=== PATIENT | female | born 1960 | race Hispanic/Latino ===

== ENCOUNTER 2016-10-11 11:55 | Inpatient (IN) | payer BC ==
[2016-10-11 13:03] LABS: Basophils % (Auto) 0.3 % (0.0-1.8); Eosinophils % (Auto) 0.3 % (0.0-4.3); Hemoglobin 12.8 gm/dl (10.1-14.3); Mean Corpuscular HGB Conc 33 % (30-34); Mean Corpuscular Hemoglobin 28 pg (28-32); Mean Corpuscular Volume 86 fl (79-97); Platelet Count 314 K/mm3 (140-440); Red Blood Count 4.52 M/mm3 (3.65-5.03); Red Cell Distribution Width 14.6 % (13.2-15.2); White Blood Count 17.3 K/mm3 (4.5-11.0)
[2016-10-11 13:26] LABS: Anion Gap 20 mmol/L; Blood Urea Nitrogen 12 mg/dL (7-17); Calcium 9.3 mg/dL (8.4-10.2); Carbon Dioxide 24 mmol/L (22-30); Glucose 130 mg/dL (65-100); Potassium 4.7 mmol/L (3.6-5.0); Sodium 134 mmol/L (137-145)
[2016-10-11] MEDS ORDERED: TYLENOL PO ONE (14:21)
[2016-10-11] MEDS ORDERED: TORADOL IV ONE (14:21)
--- NOTE | 2016-10-11 14:23 | Emergency Department Report ---
ED Chest Pain HPI - General Chief Complaint: Chest Pain Stated Complaint: CHEST PAIN Time Seen by Provider: 10/11/16 14:10 Source: patient, RN notes reviewed Mode of arrival: Ambulatory Limitations: No Limitations - History of Present Illness Initial Comments: This is a 56-year-old female. She is previously unknown to me. Her primary care doctor is Dr. Garcia. She is a past medical history of rheumatoid arthritis, takes sulfasalazine. Also has a past medical history of hypertension, distant history of renal insufficiency, bowel obstruction, partial colectomy. Patient sent to the ER by cardiology, Dr. Tory Chew, for evaluation of chest pain. The chest pain is central, does not radiate to the back, arms and neck. Associated with low-grade fever, worsens with deep inspiration, leaning forward , leaning backward. No recent cough or viral syndrome. There is no leg pain. There is no leg swelling. No recent trips greater than 4 hours. MD Complaint: chest pain -: Gradual Onset: during rest Pain Location: substernal, left chest, right chest Pain Radiation: none Severity: mild Severity scale (0 -10): 10 Quality: aching Consistency: intermittent Improves With: rest Worsens With: exertion, inspiration, movement Other Symptoms: fever Aspirin use within the Past 7 Days: (0) No - Related Data Home Medications Medication Instructions Recorded Confirmed Last Taken Ibuprofen [Motrin] 800 mg PO Q8HR PRN 10/11/16 10/11/16 10/11/16 Levothyroxine [Synthroid] 25 mcg PO QAM 10/11/16 10/11/16 10/11/16 Metoprolol Xl [Metoprolol 50 mg PO QDAY 10/11/16 10/11/16 10/11/16 SUCCINATE ER TAB] Paroxetine HCl [PARoxetine] 20 mg PO DAILY 10/11/16 10/11/16 10/11/16 Spironolactone [Aldactone] 50 mg PO QDAY 10/11/16 10/11/16 10/11/16 sulfaSALAzine [Azulfidine] 500 mg PO BID 10/11/16 10/11/16 10/11/16 Allergies Allergy/AdvReac Type Severity Reaction Status Date / Time No Known Allergies Allergy Unverified 10/11/16 12:18 SANDER score - Sander Score Age > 65: (0) No Aspirin use within the Past 7 Days: (1) Yes 3 or more CAD Risk Factors: (0) No 2 or more Angina events in past 24 hrs: (0) No Known CAD with more than 50% Stenosis: (0) No Elevated Cardiac Markers: (0) No ST Deviation Greater than 0.5mm: (0) No SANDER Score: 1 ED Review of Systems ROS: Stated complaint: CHEST PAIN Other details as noted in HPI Constitutional: fever Eyes: denies: vision change ENT: denies: epistaxis Respiratory: denies: cough Cardiovascular: chest pain Gastrointestinal: denies: abdominal pain, nausea, diarrhea Genitourinary: as per HPI Musculoskeletal: denies: back pain Skin: denies: lesions Neurological: denies: weakness Psychiatric: denies: depression ED Past Medical Hx - Past Medical History Previous Medical History?: Yes Hx Hypertension: Yes Hx Renal Disease: Yes (Hx) Hx of Cancer: Yes (ovarian) Hx Arthritis: Yes (Rheumatoid) Additional medical history: Bowel obstruction, Hx. of HD. - Surgical History Past Surgical History?: Yes Additional Surgical History: Colon resection, Abd. surgeries, Hx. of trach - Medications Home Medications: Home Medications Medication Instructions Recorded Confirmed Last Taken Type Ibuprofen [Motrin] 800 mg PO Q8HR PRN 10/11/16 10/11/16 10/11/16 History Levothyroxine [Synthroid] 25 mcg PO QAM 10/11/16 10/11/16 10/11/16 History Metoprolol Xl [Metoprolol 50 mg PO QDAY 10/11/16 10/11/16 10/11/16 History SUCCINATE ER TAB] Paroxetine HCl [PARoxetine] 20 mg PO DAILY 10/11/16 10/11/16 10/11/16 History Spironolactone [Aldactone] 50 mg PO QDAY 10/11/16 10/11/16 10/11/16 History sulfaSALAzine [Azulfidine] 500 mg PO BID 10/11/16 10/11/16 10/11/16 History ED Physical Exam - General Limitations: No Limitations General appearance: alert, in no apparent distress - Head Head exam: Present: atraumatic, normocephalic - Eye Eye exam: Present: normal appearance, PERRL, EOMI. Absent: nystagmus - ENT ENT exam: Present: normal exam, normal orophraynx, mucous membranes moist, normal external ear exam - Neck Neck exam: Present: normal inspection, full ROM. Absent: tenderness, meningismus - Respiratory Respiratory exam: Present: normal lung sounds bilaterally, other. Absent: respiratory distress, wheezes, rales, rhonchi, stridor, decreased breath sounds - Cardiovascular Cardiovascular Exam: Present: regular rate, normal rhythm, normal heart sounds. Absent: bradycardia, tachycardia, irregular rhythm, systolic murmur, diastolic murmur, rubs, gallop - GI/Abdominal GI/Abdominal exam: Present: soft, normal bowel sounds. Absent: distended, tenderness, guarding, rebound, rigid, pulsatile mass - Extremities Exam Extremities exam: Present: normal inspection, full ROM, normal capillary refill. Absent: tenderness, pedal edema, joint swelling, calf tenderness - Back Exam Back exam: Present: normal inspection, full ROM. Absent: tenderness, CVA tenderness (R), CVA tenderness (L), muscle spasm, paraspinal tenderness, vertebral tenderness - Neurological Exam Neurological exam: Present: alert, oriented X3, normal gait, other (Extraocular movements intact. Tongue midline. No facial droop. Facial sensation intact to light touch in the V1, V2, V3 distribution bilaterally. 5 and 5 strength in 4 extremities.. Sensation is intact to light touch in 4 extremities.). Absent : motor sensory deficit - Psychiatric Psychiatric exam: Present: normal affect, normal mood - Skin Skin exam: Present: warm, dry, intact, normal color, other (skin exam unremarkable. Bilateral breast exam unremarkable. Escorted by nurse Lyn Lewis). Absent: rash ED Course Vital Signs 10/11/16 10/11/16 10/11/16 12:10 14:04 16:00 Temperature 99.4 F 101.5 F H Pulse Rate 80 77 Respiratory 20 16 Rate Blood Pressure 121/71 Blood Pressure 121/71 118/73 [Right] O2 Sat by Pulse 97 97 Oximetry 10/11/16 16:10 Temperature Pulse Rate Respiratory 18 Rate Blood Pressure Blood Pressure [Right] O2 Sat by Pulse Oximetry - Reevaluation(s) Reevaluation #1: 10/11/16 15:00 Differential diagnosis: Acute coronary syndrome, pneumonia, pericarditis, myocarditis, acute coronary syndrome Assessment and plan: 56-year-old female on immune modulating therapy ( sulfasalazine), with fever, chest pain, most likely has pericarditis. My bedside ultrasound shows a small to moderate pericardial effusion. Blood cultures drawn. She will be given acetaminophen, pain medication, colchicine, Toradol. Given clinical exam findings and history, I doubt acute coronary syndrome. Case is discussed with cardiology, Faviola Guillen, who recommends admission. Cardiology will follow. Case is discussed with Hospital physician, Dr. Manzano, who accepts the patient to his service. 10/11/16 15:05 ED Medical Decision Making - Lab Data Result diagrams: 10/11/16 12:55 10/11/16 12:55 Vital Signs 10/11/16 10/11/16 12:10 14:04 Temperature 99.4 F 101.5 F H Pulse Rate 80 Respiratory 20 Rate Blood Pressure 121/71 Blood Pressure 121/71 [Right] O2 Sat by Pulse 97 Oximetry Laboratory Results - last 72 hr 10/11/16 10/11/16 12:55 12:55 WBC 17.3 H RBC 4.52 Hgb 12.8 Hct 39.0 MCV 86 MCH 28 MCHC 33 RDW 14.6 Plt Count 314 Lymph % (Auto) 7.9 L [place] % (Auto) 5.2 Eos % (Auto) 0.3 Baso % (Auto) 0.3 Lymph # 1.4 [place] # 0.9 H Eos # 0.1 Baso # 0.1 Seg Neutrophils % 86.3 H Seg Neutrophils # 14.9 H Sodium 134 L Potassium 4.7 Chloride 95.0 L Carbon Dioxide 24 Anion Gap 20 BUN 12 Creatinine 1.1 Estimated GFR 51 BUN/Creatinine Ratio 10.90 Glucose 130 H Calcium 9.3 Troponin T < 0.010 - EKG Data -: EKG Interpreted by Me EKG shows normal: sinus rhythm, axis, intervals, QRS complexes, ST-T waves Rate: normal - EKG Data When compared to previous EKG there are: no significant change Interpretation: unchanged when compared t 10/11/16 15:04 Normal sinus, 78 bpm, normal intervals, normal axis, not morphologically consistent with STEMI, essentially unchanged from prior EKG. - Radiology Data Radiology results: image reviewed interpreted by me: X-ray of the chest negative for acute disease Critical care attestation.: If time is entered above; I have spent that time in minutes in the direct care of this critically ill patient, excluding procedure time. ED Disposition Clinical Impression: Chest pain, Acute febrile illness Disposition: OP ADMITTED IP TO THIS HOSP Is pt being admited?: Yes Does the pt Need Aspirin: Yes Condition: Stable
--- NOTE | 2016-10-11 14:29 | Admit Criteria Form ---
Admission Criteria Documentation: FEBRILE ILLNESS, WITHOUT FOCAL INFECTION Clinical Indications for Admission to Inpatient Care (Place 'X' for any and all applicable criteria): Admission is indicated for ANY ONE of the following (1)(2)(3): [ ] I. Bacteremia [ X]II. Suspected or identified specific infection requiring hospitalization (eg, meningitis, endocarditis) [ ]III. Hemodynamic instability [ ]IV. Altered mental status [ ]V. Failure or unavailability of outpatient antimicrobial treatment [ ]. Hypoxemia [ ]VII. Seizures [ ]VIII. High-risk febrile neutropenia [ ]IX. Need for parenteral antibiotic in patient who is likely to abuse vascular access device (eg, injection drug user) [A](7) [ ]X. Temperature greater than 104.9 degrees F (40.5 degrees C) (oral) [X ]XI. Inpatient admission required rather than observation care because of ANY ONE of the following: [ ]a) Specific infection identified that is too severe for outpatient treatment or observation care trial [ ]b) Metabolic disorder (eg, hypoglycemia, hyperglycemia, metabolic acidosis) that is severe or persistent [ ]c) Temperature greater than 103.1 degrees F (39.5 degrees C) ( oral) that is not responsive to observation care treatment [ ]d) IV fluid to replace significant ongoing (eg, for over 24 hours) losses (> 3 L/m2 per day) [ ]e) Supplemental oxygen or respiratory treatments for over 24 hours that is performable only in acute inpatient setting [ ]f) Parenteral nutrition regimen need that must be implemented on inpatient basis [ ]g) Strict or protective (eg, laminar flow) isolation [X ]h) Other condition, treatment or monitoring requiring inpatient admission Extended stay beyond goal length of stay may be needed for(1)(3) [ ]a) Sepsis or septic shock(22) [ ]b) Positive blood cultures [ ]c) Insufficient oral intake [ ]d) High-risk febrile neutropenia(29)(30) [ ]e) Continued fever and clinical instability [ ]f) Clinically active comorbid illness (e.g,heart failure, renal failure , diabetes) The original [facility] [employer] content created by [facility] has been revised. The portions of the content which have been revised are identified through the use of italic text or in bold, and Elisa Sanchez has neither reviewed nor approved the modified material. All other unmodified content is copyright [facility]. Please see references footnoted in the original [facility] edition 2016 Admission Criteria Met: Yes
[2016-10-11] MEDS ORDERED: ROCEPHIN/NS 1 GM/50 ML 1 GM/50 ML BAG IV ONE (14:51)
[2016-10-11] MEDS ORDERED: BABY ASPIRIN PO ONE (15:06)
[2016-10-11 15:16] LABS: INR 1.21 (0.87-1.13)
--- NOTE | 2016-10-11 15:27 | Consultation ---
History of Present Illness Consult date: 10/11/16 Requesting physician: THOMAS DIAZ Medications and Allergies Allergies Allergy/AdvReac Type Severity Reaction Status Date / Time No Known Allergies Allergy Unverified 10/11/16 12:18 Home Medications Medication Instructions Recorded Confirmed Last Taken Type Ibuprofen [Motrin] 800 mg PO Q8HR PRN 10/11/16 10/11/16 10/11/16 History Levothyroxine [Synthroid] 25 mcg PO QAM 10/11/16 10/11/16 10/11/16 History Metoprolol Xl [Metoprolol 50 mg PO QDAY 10/11/16 10/11/16 10/11/16 History SUCCINATE ER TAB] Paroxetine HCl [PARoxetine] 20 mg PO DAILY 10/11/16 10/11/16 10/11/16 History Spironolactone [Aldactone] 50 mg PO QDAY 10/11/16 10/11/16 10/11/16 History sulfaSALAzine [Azulfidine] 500 mg PO BID 10/11/16 10/11/16 10/11/16 History Active Meds: Active Medications Colchicine (Colcrys) 0.6 mg PO ONCE.ED ONE Stop: 10/11/16 16:01 Physical Examination Vital Signs Temp Pulse Resp BP Pulse Ox 99.4 F 80 20 121/71 97 10/11/16 12:10 10/11/16 12:10 10/11/16 12:10 10/11/16 12:10 10/11/16 12:10 Results 10/11/16 12:55 10/11/16 12:55 Coagulation 10/11/16 Range/Units 14:52 PT 15.2 H (12.2-14.9) Sec. INR 1.21 H (0.87-1.13) CBC 10/11/16 Range/Units 12:55 WBC 17.3 H (4.5-11.0) K/mm3 RBC 4.52 (3.65-5.03) M/mm3 Hgb 12.8 (10.1-14.3) gm/dl Hct 39.0 (30.3-42.9) % Plt Count 314 (140-440) K/mm3 Lymph # 1.4 (1.2-5.4) K/mm3 [place] # 0.9 H (0.0-0.8) K/mm3 Eos # 0.1 (0.0-0.4) K/mm3 Baso # 0.1 (0.0-0.1) K/mm3 Comprehensive Metabolic Panel 10/11/16 Range/Units 12:55 Sodium 134 L (137-145) mmol/L Potassium 4.7 (3.6-5.0) mmol/L Chloride 95.0 L (98-107) mmol/L Carbon Dioxide 24 (22-30) mmol/L BUN 12 (7-17) mg/dL Creatinine 1.1 (0.7-1.2) mg/dL Glucose 130 H (65-100) mg/dL Calcium 9.3 (8.4-10.2) mg/dL
[2016-10-11] MEDS ORDERED: COLCRYS PO ONE (16:00)
--- NOTE | 2016-10-11 16:19 | Progress Note ---
Assessment and Plan Chest pain-->likely pericarditis first troponin negative, will trend obtain echocardiogram initiate ibuprofen 800mg Q8H Hypertension stable Rheumatoid arthritis The patient has been seen in conjunction with Dr. Charlton who agrees with the assessment and plan of care. Subjective Date of service: 10/11/16 Principal diagnosis: chest pain Interval history: The patient is a 56 year old female with a history of rheumatoid arthritis, hypertension who presented to Dr. Diallo's office this morning with complaints of substernal chest pain ongoing since yesterday. Given her persistent pain, she was referred to the ER for further evaluation. She states the pain is constant and worse with coughing, deep inspiration, leaning forward and lying backward. She denies any shortness of breath, palpitations, nausea, vomiting or diaphoresis. Denies any recent viral syndrome. First troponin negative. WBC 17.3. Temperature 101.5. Objective Last Vital Signs Temp 101.5 F H 10/11/16 14:04 Pulse 80 10/11/16 12:10 Resp 18 10/11/16 16:10 BP 121/71 10/11/16 12:10 Pulse Ox 97 10/11/16 12:10 - Physical Examination General: No Apparent Distress HEENT: Positive: PERRL, Normocephaly, Mucus Membranes Moist Neck: Positive: neck supple, trachea midline Cardiac: Positive: Reg Rate and Rhythm, Other (muffled heart sounds) Lungs: Positive: clear to auscultation Neuro: Positive: Grossly Intact Abdomen: Positive: Soft, Active Bowel Sounds. Negative: Tender Skin: Positive: Clear. Negative: Rash Extremities: Present: normal. Absent: edema - Imaging and Cardiology Echo: pending Holter: image reviewed - Telemetry EKG Rhythm: Sinus Rhythm
--- NOTE | 2016-10-11 16:25 | XRay Report ---
Chest 2 views. History: Chest pain and fever. Findings: The heart and lungs reveal no acute or significant abnormalities.
[2016-10-11] MEDS ORDERED: MOTRIN PO SCH (17:00)
[2016-10-11] MEDS ORDERED: MOTRIN PO PRN (23:10)
--- NOTE | 2016-10-11 23:12 | Event Note ---
Date: 10/11/16 See H/p in reports Pericarditis HTN RA Hypothyroidism Fever
[2016-10-12] MEDS: SYNTHROID PO SCH (05:59)
--- NOTE | 2016-10-12 10:14 | History and Physical Report ---
CHIEF COMPLAINT: Left-sided chest pain for 1 day. HISTORY OF PRESENT ILLNESS: A 56-year-old female with a history of rheumatoid arthritis, hypertension, went to the jockey agent's office, Dr. Diallo for substernal chest pain, ongoing since yesterday. The patient has persistent left-sided chest pain, more on inspiration and leaning forward and coughing, also lying backward. Pain is about 8 on a scale of 1-10. Dull to sharp, mostly dull, located to the left precordial region. No radiation. Also, fever of 101.5. The patient was referred to the ER for further evaluation by the jockey agent's office, Dr. Kay from [facility]. Some shortness of breath present. No palpitations. PAST MEDICAL HISTORY: Significant for hypothyroidism, hypertension, depression, ovarian cancer, rheumatoid arthritis, history of bowel obstruction. PAST SURGICAL HISTORY: Significant for colon resection, history of trach, abdominal surgeries. CURRENT MEDICATIONS: Ibuprofen 800 mg p.o. q.8h., levothyroxine 25 mcg p.o. daily, metoprolol 50 mg p.o. daily, paroxetine 20 mg p.o. daily, spironolactone 50 mg p.o. daily, Azulfidine 500 mg twice a day. FAMILY HISTORY: Significant for hypertension. SOCIAL HISTORY: Does not smoke. No alcohol, no recreational drugs. REVIEW OF SYSTEMS: CONSTITUTIONAL: No weight loss, no weight gain. Has fever present. HEENT: No sore throat. No postnasal drip. CARDIOVASCULAR: As mentioned in history of present illness. Left-sided chest pain more with breathing and coughing and leaning forward. No radiation. GASTROINTESTINAL: No nausea, no vomiting, no diarrhea. GENITOURINARY: No dysuria, no flank pain. EXTREMITIES: No joint pains, no muscle pains. CENTRAL NERVOUS SYSTEM: No syncope, no seizures. HEMATOLOGY OR LYMPHATIC: No bruising. No lymphadenopathy. PSYCHIATRIC: No depression. A 14-point review of systems done, otherwise negative. PHYSICAL EXAMINATION: GENERAL: Middle-aged female lying in bed, in slight pain. VITAL SIGNS: Temperature is 99.4 and 101.5, pulse is 80, respirations are 20, blood pressure is 121/71. HEENT: Unremarkable. Pupils equal and reactive. NECK: Supple, no lymphadenopathy, no thyromegaly. LUNGS: Clear to auscultation and percussion. Good air entry. CARDIOVASCULAR: S1, S2 heard. No gallop, no murmur, no rub. Apical impulse in left fifth intercostal space and midclavicular line. ABDOMEN: Soft and benign. No hepatosplenomegaly. No guarding, no rigidity. Hernial orifices are normal. EXTREMITIES: Good pedal pulses. No pedal edema. CENTRAL NERVOUS SYSTEM: Alert and oriented x 4, nonfocal exam. SKIN: Normal. LABORATORY DATA: Significant for white count of 17,300, potassium of 4.7, BUN and creatinine of 12 and 1.1. EKG shows normal sinus rhythm, normal intervals, normal QRS complexes and ST-T waves, 78 per minute. X-ray of the chest was negative for acute disease. The patient had an ultrasound in the ER by the ER physician and the ER physician gives a presumptive diagnosis of pericardial effusion. ASSESSMENT AND PLAN: 1. Pericarditis, high possibility present. The patient has fever and also chest pain on leaning forward. We will get echocardiogram. Also, Cardiology, ____ [facility] consulted. 2. Hypothyroidism. Continue levothyroxine 25 mcg daily. 3. Hypertension. Continue metoprolol 50 mg daily. 4. Rheumatoid arthritis . Continue sulfasalazine 500 mg b.i.d. 5. Depression. Continue paroxetine 20 mg daily. 6. Deep venous thrombosis prophylaxis, Lovenox 40 mg subcutaneous daily. In summary, the patient has a fever, pericarditis. The patient started on broad-spectrum antibiotics. JOB# [id number] DENAM/NTS
[2016-10-12] MEDS: ALDACTONE PO SCH (10:58)
[2016-10-12] MEDS: TOPROL XL PO SCH (10:58)
[2016-10-12] MEDS: PAXIL PO SCH (10:58)
[2016-10-12] MEDS: AZULFIDINE PO SCH ×2 (10:58→22:51)
[2016-10-12] MEDS ORDERED: TORADOL IV PRN (11:28)
--- NOTE | 2016-10-12 12:09 | Progress Note ---
Assessment and Plan Chest pain-->likely pericarditis troponin negative x 2 continue NSAIDS initiate colchicine await echo findings Hypertension stable Rheumatoid arthritis The patient has been seen in conjunction with Dr. Charlton who agrees with the assessment and plan of care. Subjective Date of service: 10/12/16 Principal diagnosis: chest pain Interval history: The patient is resting in bed. She c/o 10/10 CP across her entire chest, worse with deep inspiration. Sinus rhythm on the monitor. Objective Last Vital Signs Temp 97.8 F 10/12/16 08:03 Pulse 59 L 10/12/16 08:03 Resp 18 10/12/16 08:03 BP 107/59 10/12/16 08:03 Pulse Ox 97 10/12/16 08:03 - Physical Examination General: No Apparent Distress HEENT: Positive: PERRL, Normocephaly, Mucus Membranes Moist Neck: Positive: neck supple, trachea midline Cardiac: Positive: Reg Rate and Rhythm, Other (muffled heart sounds) Lungs: Positive: clear to auscultation Neuro: Positive: Grossly Intact Abdomen: Positive: Soft, Active Bowel Sounds. Negative: Tender Skin: Positive: Clear. Negative: Rash Extremities: Present: normal. Absent: edema - Imaging and Cardiology Echo: pending Holter: image reviewed - Telemetry EKG Rhythm: Sinus Rhythm
[2016-10-12] MEDS: COLCRYS PO SCH ×2 (12:40→22:51)
[2016-10-12] MEDS ORDERED: DECADRON IV ONE (12:40)
[2016-10-12] MEDS ORDERED: ROCEPHIN 2,000 MG in NACL 0.9% 50 ML IV SCH (13:00)
[2016-10-12] MEDS ORDERED: ROCEPHIN/NS 2 GM/100 ML 2 GM/100 ML BAG IV SCH (13:00)
--- NOTE | 2016-10-12 14:18 | Progress Note ---
Assessment and Plan Assessment and plan: Patient is 48-year-old woman history of hypertension, rheumatoid arthritis, hypothyroidism, 2002 PE off a/c, depression and ovarian cancer who presents with chest pain. She is suspected to have pericarditis by cardiology. 1. Acute pericarditis 2. Rheumatoid arthritis 3. Hypertension, chronic stable 4. Leukocytosis and febrile, SIRS, ?early sepsis on iv Rocephin, blood ctx done. 5. Elevated INR, reason unknown full code disposition: continue inpatient care History Interval history: Patient seen and examined. Follow up on chest pains which has still present and severe. Overnight uneventful. No n/v or severe headaches. Imaging, old records , testing, labs, nursing notes reviewed. Hospitalist Physical - Physical exam Narrative exam: GEN: WDWN, NAD, AWAKE, ALERT, ORIENTATED x 3 CVS: RRR, NORMAL S1S2 LUNGS/CHEST: CTA B, NORMAL CHEST EXPANSION B, GOOD AIR ENTRY B ABD: SOFT NTND, GBS, NO REBOUND OR GUARDING EXT/SKIN: NO SIGNIFICANT EDEMA OR RASH MSK: FROM X 4 EXTREMITIES NEURO: CN 2-12 GROSSLY INTACT, NO new FOCAL DEFICITS PSY: CALM - Constitutional Vitals: Temp Pulse Resp BP Pulse Ox 97.8 F 59 L 18 107/59 97 10/12/16 08:03 10/12/16 08:03 10/12/16 08:03 10/12/16 08:03 10/12/16 08:03 Results - Labs CBC & Chem 7: 10/11/16 12:55 10/11/16 12:55 Labs: Laboratory Last Values WBC 17.3 K/mm3 (4.5-11.0) H 10/11/16 12:55 RBC 4.52 M/mm3 (3.65-5.03) 10/11/16 12:55 Hgb 12.8 gm/dl (10.1-14.3) 10/11/16 12:55 Hct 39.0 % (30.3-42.9) 10/11/16 12:55 MCV 86 fl (79-97) 10/11/16 12:55 MCH 28 pg (28-32) 10/11/16 12:55 MCHC 33 % (30-34) 10/11/16 12:55 RDW 14.6 % (13.2-15.2) 10/11/16 12:55 Plt Count 314 K/mm3 (140-440) 10/11/16 12:55 Lymph % (Auto) 7.9 % (13.4-35.0) L 10/11/16 12:55 [place] % (Auto) 5.2 % (0.0-7.3) 10/11/16 12:55 Eos % (Auto) 0.3 % (0.0-4.3) 10/11/16 12:55 Baso % (Auto) 0.3 % (0.0-1.8) 10/11/16 12:55 Lymph # 1.4 K/mm3 (1.2-5.4) 10/11/16 12:55 [place] # 0.9 K/mm3 (0.0-0.8) H 10/11/16 12:55 Eos # 0.1 K/mm3 (0.0-0.4) 10/11/16 12:55 Baso # 0.1 K/mm3 (0.0-0.1) 10/11/16 12:55 Seg Neutrophils % 86.3 % (40.0-70.0) H 10/11/16 12:55 Seg Neutrophils # 14.9 K/mm3 (1.8-7.7) H 10/11/16 12:55 PT 15.2 Sec. (12.2-14.9) H 10/11/16 14:52 INR 1.21 (0.87-1.13) H 10/11/16 14:52 Sodium 134 mmol/L (137-145) L 10/11/16 12:55 Potassium 4.7 mmol/L (3.6-5.0) 10/11/16 12:55 Chloride 95.0 mmol/L (98-107) L 10/11/16 12:55 Carbon Dioxide 24 mmol/L (22-30) 10/11/16 12:55 Anion Gap 20 mmol/L 10/11/16 12:55 BUN 12 mg/dL (7-17) 10/11/16 12:55 Creatinine 1.1 mg/dL (0.7-1.2) 10/11/16 12:55 Estimated GFR 51 ml/min 10/11/16 12:55 BUN/Creatinine Ratio 10.90 % 10/11/16 12:55 Glucose 130 mg/dL (65-100) H 10/11/16 12:55 Lactic Acid 0.8 mmol/L (0.7-2.0) 10/11/16 14:52 Calcium 9.3 mg/dL (8.4-10.2) 10/11/16 12:55 Total Creatine Kinase 17 units/L (30-135) L 10/11/16 14:52 Troponin T < 0.010 ng/mL (0.00-0.029) 10/11/16 18:18 NT-Pro-B Natriuret Pep 730.2 pg/mL (0-900) 10/11/16 14:52
[2016-10-12] MEDS ORDERED: NACL ONE (16:28)
--- NOTE | 2016-10-12 17:27 | Cat Scan Report ---
FINAL REPORT PROCEDURE: CT ANGIO CHEST TECHNIQUE: Computerized tomographic angiography of the chest was performed after the IV injection of iodinated nonionic contrast including image processing. The image data was postprocessed using 2-dimensional multiplanar reformatted (MPR) and 3-dimensional (MIP and/or volume rendered) techniques. HISTORY: Chest pain. COMPARISON: No prior studies are available for comparison. FINDINGS: Heart and pericardium: Small pericardial effusion measuring up to 5 millimeters. Subtle stranding of the fat in the pericardial region. Mild coronary artery disease. Mild cardiomegaly. Thoracic aorta: Normal. Pulmonary vasculature: Normal. Lymph nodes: Mildly enlarged lymph nodes, increased in number and size. Prevascular lymph node measures 13 by 7 millimeters. Largest right paratracheal lymph node measures 16 by 17 millimeters.. Small pre cardiac lymph nodes. Lungs: Mild bibasilar airspace disease. Pleural space: Small right pleural effusion. Musculoskeletal structures: Small multilevel osteophytes. Multilevel disc space narrowing. Upper abdominal structures: Splenic granulomas.. Anterior abdominal wall diastases with loop of transverse colon in defect. IVC filter, tip below the level of the renal veins. IMPRESSION: No CT evidence of pulmonary embolism. Small pericardial effusion. Subtle stranding of the fat in the pericardial region, consider correlation clinically if there is concern for pericarditis. Coronary artery disease. Mild cardiomegaly. Bibasilar airspace disease. Small right pleural effusion. Consider atelectasis, cannot exclude pneumonia. Consider attention on followup radiographs. Moderate adenopathy, consider could be reactive to infectious/inflammatory process. This can also be re-evaluated on followup examination. Evidence of prior granulomatous disease. Anterior abdominal wall diastases with loop of transverse colon in defect.
[2016-10-13] MEDS: SYNTHROID PO SCH (05:57)
[2016-10-13] MEDS: TOPROL XL PO SCH (09:44)
[2016-10-13] MEDS: PAXIL PO SCH (09:44)
[2016-10-13] MEDS: COLCRYS PO SCH (09:44)
[2016-10-13] MEDS: ALDACTONE PO SCH (09:44)
[2016-10-13] MEDS: AZULFIDINE PO SCH (09:44)
--- NOTE | 2016-10-13 11:11 | Progress Note ---
Assessment and Plan Chest pain-->likely pericarditis troponin negative x 2 chest CTA negative for PE Echo 10/2016: EF 50-55%, no pericardial effusion stress test as an outpatient continue NSAIDS Hypertension stable Rheumatoid arthritis Stable cardiac status. Patient may be discharged from a cardiac standpoint on ibuprofen 800mg Q8H x 7 days and medrol dosepak. Follow up appointment with Dr. Diallo in the [place] office on 10/31/16 at 11 :30 am. The patient has been seen in conjunction with Dr. Charlton who agrees with the assessment and plan of care. Subjective Date of service: 10/13/16 Principal diagnosis: chest pain Interval history: The patient is resting in bed. She feels much better today. Chest pain 09/22 currently. Sinus rhythm on the monitor. Objective Last Vital Signs Temp 98.1 F 10/13/16 07:40 Pulse 67 10/13/16 08:00 Resp 20 10/13/16 07:40 BP 97/60 10/13/16 07:40 Pulse Ox 94 10/13/16 08:57 - Physical Examination General: No Apparent Distress HEENT: Positive: PERRL, Normocephaly, Mucus Membranes Moist Neck: Positive: neck supple, trachea midline Cardiac: Positive: Reg Rate and Rhythm, S1/S2 Lungs: Positive: clear to auscultation Neuro: Positive: Grossly Intact Abdomen: Positive: Soft, Active Bowel Sounds. Negative: Tender Skin: Positive: Clear. Negative: Rash Extremities: Present: normal. Absent: edema - Imaging and Cardiology Echo: report reviewed (10/2016: EF 50-55%, no pericardial effusion ) Holter: image reviewed - Telemetry EKG Rhythm: Sinus Rhythm
--- NOTE | 2016-10-13 11:14 | Discharge Summary ---
Providers - Providers Date of Admission: 10/11/16 15:06 Attending physician: FARHEEN STEELE MD Hospitalization Condition: Stable Hospital course: Patient is 48-year-old woman history of hypertension, rheumatoid arthritis, hypothyroidism, who presented with chest pain due to acute Pericarditis, she was rx with NSAIDs, Steroids and colchine. She was advised to eat a balanced diet rich in fats, proteins and carbs, she was dc in improved condition Dc Diagnosis 1. Acute pericarditis 2. RA- chronic 3. Mild to moderate malnurtition 4. SIRS- sepsis was ruled out Disposition: DISCHARGED TO HOME OR SELFCARE Time spent for discharge: 35 minutes Core Measure Documentation - Palliative Care Palliative Care/ Comfort Measures: Not Applicable - Core Measures Any of the following diagnoses?: none Exam - Constitutional Vitals: Temp Pulse Resp BP Pulse Ox 98.1 F 67 20 97/60 94 10/13/16 07:40 10/13/16 08:00 10/13/16 07:40 10/13/16 07:40 10/13/16 08:57 General appearance: Present: no acute distress, well-nourished - EENT Eyes: Present: PERRL ENT: hearing intact, clear oral mucosa - Neck Neck: Present: supple, normal ROM - Respiratory Respiratory effort: normal Respiratory: bilateral: CTA - Cardiovascular Heart Sounds: Present: S1 & S2. Absent: rub, click - Extremities Extremities: pulses symmetrical, No edema Peripheral Pulses: within normal limits - Abdominal General gastrointestinal: Present: soft, non-tender, non-distended, normal bowel sounds Female genitourinary: Present: normal - Integumentary Integumentary: Present: clear, warm, dry - Musculoskeletal Musculoskeletal: gait normal, strength equal bilaterally - Psychiatric Psychiatric: appropriate mood/affect, intact judgment & insight - Neurologic Neurologic: CNII-XII intact, moves all extremities Plan Follow up with: DR CHRISTINA [Other] - 3-5 Days Prescriptions: Colchicine [Colcrys] 0.6 mg PO BID #60 tablet Ibuprofen [Motrin 800 MG tab] 800 mg PO Q8HR PRN #20 tablet PRN Reason: Pain methylPREDNISolone [Medrol Dose [place]] 4 mg PO TID #1 pack
[2016-10-13 12:23] VITALS: BP 113/61
== END 2016-10-13 12:59 | disposition home or self-care (01) | DRG 315 ==
LOC: ED 11:55 → 4A 15:06
PROVIDERS: ADMIT Internal Medicine; ATTEND Internal Medicine
DX: I30.9 Acute pericarditis, unspecified (principal); R65.10 Systemic inflammatory response syndrome (SIRS) of non-infectious origin without acute organ dysfunction; I31.9 Disease of pericardium, unspecified; E03.9 Hypothyroidism, unspecified; I10 Essential (primary) hypertension; M06.9 Rheumatoid arthritis, unspecified; F32.9 Major depressive disorder, single episode, unspecified; Z90.49 Acquired absence of other specified parts of digestive tract; Z85.43 Personal history of malignant neoplasm of ovary
CPT/HCPCS: 36415; 71020; 71275; 80048; 82140; 82550; 83880; 84484; 85025; 85610; 87040; 93005; 93010; 93306; 96365; 96375; J0696; J1100; J1885; Q9967